=== PATIENT | female | born 1970 | race Caucasian/White ===

== ENCOUNTER 2017-06-27 12:23 | Emergency (ER) | payer BC, OTHER ==
[2017-06-27] MEDS ORDERED: Proparacaine 0.5% Ophth Soln 15 ML Bottle ONE (13:14)
[2017-06-27] MEDS ORDERED: Erythromycin Base 0.5% Ophth Oint 1 GM Tube ONE (13:48)
[2017-06-28 09:14] VITALS: BP 136/83
== END 2017-06-27 13:45 | disposition home or self-care (01) ==
LOC: MW.ED 12:23
DX: S05.02XA Injury of conjunctiva and corneal abrasion without foreign body, left eye, initial encounter (principal); W61 Contact with birds (domestic) (wild)
CPT/HCPCS: 99283; A9270; 99282

== ENCOUNTER 2017-09-11 12:42 | Emergency (ER) | payer BC ==
[2017-09-11 13:04] VITALS: BP 129/79
--- NOTE | 2017-09-11 13:14 | EDM.PDOC ---
ED HPI GENERAL MEDICAL PROBLEM - General Stated Complaint: FALL Time Seen by Provider: 09/11/17 12:42 Source of Information: Reports: Patient History Limitations: Reports: No Limitations - History of Present Illness INITIAL COMMENTS - FREE TEXT/NARRATIVE: History of present illness: []Patient was carrying out a large phillip of meatballs and slipped on a step. She somehow twisted her right ankle. He is ambulatory but has pain and swelling in the lateral part of her right ankle. She denies any other injuries and did not lose consciousness. Review of systems: As per history of present illness and below otherwise all systems reviewed and negative. Past medical history: As per history of present illness and as reviewed below otherwise noncontributory. Surgical history: As per history of present illness and as reviewed below otherwise noncontributory. Social history: No reported history of drug or alcohol abuse. Family history: As per history of present illness and as reviewed below otherwise noncontributory. Physical exam: General: Well developed, well nourished in NAD HEENT: Atraumatic, normocephalic, pupils reactive, negative for conjunctival pallor or scleral icterus, mucous membranes moist, throat clear, neck supple, nontender, trachea midline. Lungs: Clear to auscultation, breath sounds equal bilaterally, chest nontender. Heart: S1S2, regular, negative for clicks, rubs, or JVD. Abdomen: Soft, nondistended, nontender. Negative for masses or hepatosplenomegaly. Negative for costovertebral tenderness. Pelvis: Stable nontender. Genitourinary: Deferred. Rectal: Deferred. Extremities: Superficial skin abrasion over the lateral malleolus with swelling and erythema tenderness to palpation. No crepitance, negative for cords or calf pain. Neurovascular unremarkable. Neuro: Awake, alert, oriented. Cranial nerves II through XII unremarkable. Cerebellum unremarkable. Motor and sensory unremarkable throughout. Exam nonfocal. Diagnostics: []X-ray right ankle negative for fracture Therapeutics: []Patient declined pain meds Impression: []Ankle sprain Plan: []Air splint, ice, elevation, Motrin, follow with primary care as needed Definitive disposition and diagnosis as appropriate pending reevaluation and review of above. right foot Pain Score (Numeric/FACES): 3 - Related Data Allergies Allergy/AdvReac Type Severity Reaction Status Date / Time amoxicillin trihydrate Allergy Blisters Verified 09/11/17 12:59 [From Augmentin] codeine Allergy Blisters Verified 09/11/17 12:59 potassium clavulanate Allergy Blisters Verified 09/11/17 12:59 [From Augmentin] Home Meds: Home Meds Spironolactone [Spironolactone] 50 mg PO DAILY 02/02/15 [History] sitaGLIPtin Phos/Metformin HCl [Janumet Xr 50-1,000 mg Tablet] 1,000 mg PO BID 06/28/17 [History] Past Medical History Endocrine/Metabolic History: Reports: Diabetes, Type II - Past Surgical History Other Female Surgeries/Procedures: Barcolin Cyst Social & Family History - Family History Family Medical History: Noncontributory - Tobacco Use Smoking Status *Q: Never Smoker Second Hand Smoke Exposure: No - Recreational Drug Use Recreational Drug Use: No Review of Systems - Review of Systems Review Of Systems: See Below (See history of present illness) ED EXAM, GENERAL - Physical Exam Exam: See Below (See history of present illness) Course - Vital Signs Last Recorded V/S: Last Vital Signs Temp 98.5 F 09/11/17 13:00 Pulse 97 09/11/17 13:00 Resp 18 09/11/17 13:00 BP 129/79 09/11/17 13:00 Pulse Ox 98 09/11/17 13:00 - Orders/Labs/Meds Orders: Active Orders 24 hr Category Date Time Status Splinting [RC] ASDIRECTED Care 09/11/17 14:05 Ordered Ankle Min 3V Rt [CR] Stat Exams 09/11/17 13:10 Taken Departure - Departure Time of Disposition: 14:06 Disposition: Home, Self-Care 01 Condition: Good Clinical Impression: Right ankle sprain Qualifiers: Encounter type: initial encounter - Discharge Information Referrals: PCP,None [Primary Care Provider] - Additional Instructions: The following information is given to patients seen in the emergency department who are being discharged to home. This information is to outline your options for follow-up care. We provide all patients seen in our emergency department with a follow-up referral. The need for follow-up, as well as the timing and circumstances, are variable depending upon the specifics of your emergency department visit. If you don't have a primary care physician on staff, we will provide you with a referral. We always advise you to contact your personal physician following an emergency department visit to inform them of the circumstance of the visit and for follow-up with them and/or the need for any referrals to a consulting specialist. The emergency department will also refer you to a specialist when appropriate. This referral assures that you have the opportunity for follow-up care with a specialist. All of these measure are taken in an effort to provide you with optimal care, which includes your follow-up. Under all circumstances we always encourage you to contact your private physician who remains a resource for coordinating your care. When calling for follow-up care, please make the office aware that this follow-up is from your recent emergency room visit. If for any reason you are refused follow-up, please contact the [facility] Emergency Department at and asked to speak to the emergency department charge nurse. Ice, elevation, Motrin for pain follow-up with primary care as needed [facility] [address] [place] [id number] - My Orders Last 24 Hours: My Active Orders 09/11/17 13:10 Ankle Min 3V Rt [CR] Stat 09/11/17 14:05 Splinting [RC] ASDIRECTED - Assessment/Plan Last 24 Hours: My Active Orders 09/11/17 13:10 Ankle Min 3V Rt [CR] Stat 09/11/17 14:05 Splinting [RC] ASDIRECTED
--- NOTE | 2017-09-13 11:15 | CR ---
EXAM DATE: 09/11/17 PATIENT'S AGE: 47 Patient: DEISY LADD Facility: [place], [place] Site . Site : [id number] Study: XRay Extremity Right ankle [id number] 1:25:07 PM Ordering Physician: Jaret Taylor Final Report: HISTORY: Fall on ice. TECHNIQUE: Right ankle 3 views. COMPARISON: None. FINDINGS: No fracture or dislocation. Ankle mortise is congruent. Joint spaces are maintained. Spurring of the medial malleolus is likely from remote ligamentous injury. Achilles insertion enthesophyte. Plantar calcaneal enthesophyte. IMPRESSION: No acute findings. Dictated by Wesley Post MD @ Sep 11 2017 1:38PM (Electronic Signature) Report Signed by Proxy. GRANT
== END 2017-09-11 14:13 | disposition home or self-care (01) ==
LOC: MW.ED 12:42
DX: S93.401A Sprain of unspecified ligament of right ankle, initial encounter (principal); X50.1XXA Overexertion from prolonged static or awkward postures, initial encounter; Z88.1 Allergy status to other antibiotic agents; Z88.5 Allergy status to narcotic agent; Z79.899 Other long term (current) drug therapy; Z79.84 Long term (current) use of oral hypoglycemic drugs
CPT/HCPCS: 73610-26-RT; 73610-RT; 99283

== ENCOUNTER 2019-01-20 22:15 | Emergency (ER) | payer BC ==
[2019-01-20] MEDS ORDERED: Sodium Chloride 0.9% 1,000 ML IV ONE (22:17)
[2019-01-20] MEDS ORDERED: LORazepam 2 MG/ML SDV IVPUSH ONE (22:17)
--- NOTE | 2019-01-20 22:18 | EDM.PDOC ---
ED HPI GENERAL MEDICAL PROBLEM - General Chief Complaint: Behavioral/Psych Stated Complaint: PANIC ATTACK Time Seen by Provider: 01/20/19 22:18 Source of Information: Reports: Patient - History of Present Illness INITIAL COMMENTS - FREE TEXT/NARRATIVE: HISTORY AND PHYSICAL: History of present illness: [Patient presents with anxiety panic seeming to stem from several different reasons she does have a history of anxiety panic she was recently stopped Paxil and switched to fluoxetine a few months ago and then stop medication altogether She is working on her master's degree with thesis papers due as well as a son that had some legal problems over the weekend since she has been having anxiety panic problems for the last week Follow with her primary care restarted fluoxetine at 40 mg daily however she has only been on the medication for 2 days She has no fever nausea vomiting chills sweats no chest pain shortness breath headache dizziness palpitation no bowel or urine symptoms ] Review of systems: As per history of present illness and below otherwise all systems reviewed and negative. Past medical history: As per history of present illness and as reviewed below otherwise noncontributory. Surgical history: As per history of present illness and as reviewed below otherwise noncontributory. Social history: No reported history of drug or alcohol abuse. Family history: As per history of present illness and as reviewed below otherwise noncontributory. Physical exam: HEENT: Atraumatic, normocephalic, pupils reactive, negative for conjunctival pallor or scleral icterus, mucous membranes moist, throat clear, neck supple, nontender, trachea midline. Lungs: Clear to auscultation, breath sounds equal bilaterally, chest nontender. Heart: S1S2, regular, negative for clicks, rubs, or JVD. Abdomen: Soft, nondistended, nontender. Negative for masses or hepatosplenomegaly. Negative for costovertebral tenderness. Pelvis: Stable nontender. Genitourinary: Deferred. Rectal: Deferred. Extremities: Atraumatic, negative for cords or calf pain. Neurovascular unremarkable. Neuro: Awake, alert, oriented. Cranial nerves II through XII unremarkable. Cerebellum unremarkable. Motor and sensory unremarkable throughout. Exam nonfocal. Diagnostics: [CBC CMP UA troponin EKG ] Therapeutics: [Normal saline Ativan 1 mg IV ] Ativan 0.5 mg by mouth twice a day #10 no refill Impression: [ anxiety/panic ]-improved Medication noncompliance Definitive disposition and diagnosis as appropriate pending reevaluation and review of above. eyes Pain Score (Numeric/FACES): 3 - Related Data Allergies Allergy/AdvReac Type Severity Reaction Status Date / Time amoxicillin trihydrate Allergy Blisters Verified 01/20/19 22:21 [From Augmentin] codeine Allergy Blisters Verified 01/20/19 22:21 potassium clavulanate Allergy Blisters Verified 01/20/19 22:21 [From Augmentin] Home Meds: Home Meds Spironolactone 50 mg PO DAILY 02/02/15 [History] sitaGLIPtin Phos/Metformin HCl [Janumet Xr 50-1,000 mg Tablet] 1,000 mg PO BID 06/28/17 [History] Past Medical History Endocrine/Metabolic History: Reports: Diabetes, Type II - Past Surgical History Other Female Surgeries/Procedures: Barcolin Cyst Social & Family History - Family History Family Medical History: Noncontributory ED ROS GENERAL - Review of Systems Review Of Systems: See Below ED EXAM, GENERAL - Physical Exam Exam: See Below Course - Vital Signs Last Recorded V/S: Last Vital Signs Temp 97 F 01/20/19 22:21 Pulse 122 H 01/20/19 22:21 Resp 18 01/20/19 22:21 BP 147/96 H 01/20/19 22:21 Pulse Ox 98 01/20/19 22:21 - Orders/Labs/Meds Orders: Active Orders 24 hr Category Date Time Status EKG Documentation Completion [RC] STAT Care 01/20/19 22:17 Active Labs: Laboratory Tests 01/20/19 01/20/19 01/20/19 Range/Units 22:40 22:40 23:50 WBC 10.36 (4.0-11.0) K/uL RBC 5.43 (4.30-5.90) M/uL Hgb 14.7 (12.0-16.0) g/dL Hct 44.4 (36.0-46.0) % MCV 81.8 (80.0-98.0) fL MCH 27.1 (27.0-32.0) pg MCHC 33.1 (31.0-37.0) g/dL RDW Std Deviation 38.5 (28.0-62.0) fl RDW Coeff of Evelyn 13 (11.0-15.0) % Plt Count 315 (150-400) K/uL MPV 9.60 (7.40-12.00) fL Neut % (Auto) 67.7 (48.0-80.0) % Lymph % (Auto) 18.6 (16.0-40.0) % [place] % (Auto) 6.3 (0.0-15.0) % Eos % (Auto) 7.0 (0.0-7.0) % Baso % (Auto) 0.4 (0.0-1.5) % Neut # (Auto) 7.0 H (1.4-5.7) K/uL Lymph # (Auto) 1.9 (0.6-2.4) K/uL [place] # (Auto) 0.7 (0.0-0.8) K/uL Eos # (Auto) 0.7 (0.0-0.7) K/uL Baso # (Auto) 0.0 (0.0-0.1) K/uL Nucleated RBC % 0.0 /100WBC Nucleated RBCs # 0 K/uL Sodium 138 (136-145) mmol/L Potassium 4.0 (3.5-5.1) mmol/L Chloride 103 (98-107) mmol/L Carbon Dioxide 23.1 (21.0-32.0) mmol/L BUN 16 (7.0-18.0) mg/dL Creatinine 0.7 (0.6-1.0) mg/dL Est Cr Clr Drug Dosing 123.87 mL/min Estimated GFR (MDRD) > 60.0 ml/min Glucose 176 H (74-106) mg/dL Calcium 9.1 (8.5-10.1) mg/dL Total Bilirubin 0.3 (0.2-1.0) mg/dL AST 17 (15-37) IU/L ALT 32 (14-63) IU/L Alkaline Phosphatase 62 (46-116) U/L Total Protein 7.7 (6.4-8.2) g/dL Albumin 3.9 (3.4-5.0) g/dL Globulin 3.8 (2.6-4.0) g/dL Albumin/Globulin Ratio 1.0 (0.9-1.6) Urine Color YELLOW Urine Appearance CLEAR Urine pH 5.5 (5.0-8.0) Ur Specific [place] 1.025 (1.001-1.035) Urine Protein NEGATIVE (NEGATIVE) mg/dL Urine Glucose (UA) NEGATIVE (NEGATIVE) mg/dL Urine Ketones TRACE H (NEGATIVE) mg/dL Urine Occult Blood NEGATIVE (NEGATIVE) Urine Nitrite NEGATIVE (NEGATIVE) Urine Bilirubin NEGATIVE (NEGATIVE) Urine Urobilinogen 0.2 (<2.0) EU/dL Ur Leukocyte Esterase NEGATIVE (NEGATIVE) Meds: Medications Discontinued Medications Generic Name Dose Route Start Last Admin Trade Name Sunita PRN Reason Stop Dose Admin Sodium Chloride 1,000 mls @ 999 mls/hr 01/20/19 22:17 01/20/19 22:44 Normal Saline IV 01/20/19 23:17 999 mls/hr STAT ONE Administration Lorazepam 1 mg 01/20/19 22:17 01/20/19 22:44 Ativan IVPUSH 01/20/19 22:18 1 mg ONETIME ONE Administration Departure - Departure Time of Disposition: 00:20 Disposition: Home, Self-Care 01 Condition: Good Clinical Impression: Anxiety - Discharge Information Referrals: PCP,None [Primary Care Provider] - Forms: ED Department Discharge Additional Instructions: The following information is given to patients seen in the emergency department who are being discharged to home. This information is to outline your options for follow-up care. We provide all patients seen in our emergency department with a follow-up referral. The need for follow-up, as well as the timing and circumstances, are variable depending upon the specifics of your emergency department visit. If you don't have a primary care physician on staff, we will provide you with a referral. We always advise you to contact your personal physician following an emergency department visit to inform them of the circumstance of the visit and for follow-up with them and/or the need for any referrals to a consulting specialist. The emergency department will also refer you to a specialist when appropriate. This referral assures that you have the opportunity for follow-up care with a specialist. All of these measure are taken in an effort to provide you with optimal care, which includes your follow-up. Under all circumstances we always encourage you to contact your private physician who remains a resource for coordinating your care. When calling for follow-up care, please make the office aware that this follow-up is from your recent emergency room visit. If for any reason you are refused follow-up, please contact the [facility] emergency department at and asked to speak to the emergency department charge nurse. - My Orders Last 24 Hours: My Active Orders 01/20/19 22:17 EKG Documentation Completion [RC] STAT - Assessment/Plan Last 24 Hours: My Active Orders 01/20/19 22:17 EKG Documentation Completion [RC] STAT
[2019-01-20 23:12] LABS: CHLORIDE,CL 103 mmol/L (98-107); SODIUM,NA 138 mmol/L (136-145)
[2019-01-21 00:35] VITALS: BP 106/75
== END 2019-01-21 00:35 | disposition home or self-care (01) ==
LOC: MW.ED 22:15
DX: F41.9 Anxiety disorder, unspecified (principal); Z91.19 Patient's noncompliance with other medical treatment and regimen; Z88.1 Allergy status to other antibiotic agents; Z88.5 Allergy status to narcotic agent; Z88.8 Allergy status to other drugs, medicaments and biological substances; Z79.899 Other long term (current) drug therapy; Z79.84 Long term (current) use of oral hypoglycemic drugs; E11.9 Type 2 diabetes mellitus without complications
CPT/HCPCS: 80053; 81003; 85025; 93005; 96361; 96374; 99283; J2060; J7040

== ENCOUNTER 2019-05-12 18:28 | Emergency (ER) | payer SELFPAY ==
[2019-05-12] MEDS ORDERED: Ketorolac 30 MG/ML SDV IVPUSH ONE (18:44)
[2019-05-12] MEDS ORDERED: Ondansetron 4 MG/2 ML SDV IVPUSH ONE (18:44)
[2019-05-12] MEDS ORDERED: Metoclopramide 10 MG/2 ML SDV IV ONE (18:44)
[2019-05-12] MEDS ORDERED: diphenhydrAMINE 50 MG/ML SDV IVPUSH ONE (18:44)
[2019-05-12] MEDS ORDERED: Sodium Chloride 0.9% 1,000 ML IV ONE (18:44)
--- NOTE | 2019-05-12 18:53 | EDM.PDOC ---
ED HPI GENERAL MEDICAL PROBLEM - General Chief Complaint: Headache Stated Complaint: MIGRAINE Time Seen by Provider: 05/12/19 18:36 Source of Information: Reports: Patient History Limitations: Reports: No Limitations - History of Present Illness INITIAL COMMENTS - FREE TEXT/NARRATIVE: HISTORY AND PHYSICAL: History of present illness: Patient is a 48-year-old female who presents to the ED today with concern of a migraine headache 1 hour. Patient states she has a history of migraines and has sumatriptan available to her. Patient states she was unable to find her sumatriptan down so came to the emergency room. Patient states her migraine today is typical of her usual migraine headaches and is not changed per her baseline migraines. Patient states she has not taken anything for her symptoms. Patient denies any associated symptoms or any other symptoms or concerns. Patient denies fever, chills, chest pain, shortness of breath, or cough. Denies neck stiff ness, change in vision, syncope, or near syncope. Denies nausea, vomiting, abdominal pain, diarrhea, constipation, or dysuria. Has not noted any blood in urine or stool. Patient has been eating and drinking appropriately. Review of systems: As per history of present illness and below otherwise all systems reviewed and negative. Past medical history: As per history of present illness and as reviewed below otherwise noncontributory. Surgical history: As per history of present illness and as reviewed below otherwise noncontributory. Social history: See social history for further information Family history: As per history of present illness and as reviewed below otherwise noncontributory. Physical exam: General: Patient is alert, oriented, and in no acute distress. Patient sitting comfortably on exam table. HEENT: Atraumatic, normocephalic, pupils equal and reactive bilaterally, negative for conjunctival pallor or scleral icterus, mucous membranes moist, TMs normal bilaterally, throat clear, neck supple, nontender, trachea midline. No drooling or trismus noted. No meningeal signs. No hot potato voice noted. Lungs: Clear to auscultation, breath sounds equal bilaterally, chest nontender. Heart: S1S2, regular rate and rhythm without overt murmur Abdomen: Soft, nondistended, nontender. Negative for masses or hepatosplenomegaly. Negative for costovertebral tenderness. Pelvis: Stable nontender. Genitourinary: Deferred. Rectal: Deferred. Skin: Intact, warm, dry. No lesions or rashes noted. Extremities: Atraumatic, negative for cords or calf pain. Neurovascular unremarkable. Neuro: Awake, alert, oriented. Cranial nerves II through XII unremarkable. Cerebellum unremarkable. Motor and sensory unremarkable throughout. Exam nonfocal. Notes: Patient expresses complete resolution of her headache today with therapeutics given. Discussed the importance for follow-up with a primary care provider. Voices understanding and is agreeable to plan of care. Denies any further questions or concerns at this time. Diagnostics: None Therapeutics: Saline, Toradol, Zofran, Benadryl, Reglan Prescription: None Impression: Migraine Headache Plan: 1. Encourage small but frequent sips of fluid to prevent dehydration. You can alternate ibuprofen and Tylenol as directed for pain and discomfort. 2. Follow-up with your primary care provider or neurologist as discussed. Return to the ED as needed and as discussed. Definitive disposition and diagnosis as appropriate pending reevaluation and review of above. Right Head Pain Score (Numeric/FACES): 8 - Related Data Allergies Allergy/AdvReac Type Severity Reaction Status Date / Time amoxicillin trihydrate Allergy Blisters Verified 05/12/19 18:32 [From Augmentin] codeine Allergy Blisters Verified 05/12/19 18:32 potassium clavulanate Allergy Blisters Verified 05/12/19 18:32 [From Augmentin] Home Meds: Home Meds Spironolactone 50 mg PO DAILY 02/02/15 [History] sitaGLIPtin Phos/Metformin HCl [Janumet Xr 50-1,000 mg Tablet] 1,000 mg PO BID 06/28/17 [History] FLUoxetine [PROzac] 40 mg PO ASDIRECTED 05/12/19 [History] Insulin Aspart (Niacinamide) [Fiasp Penfill 100 Unit/ml Cart] 100 unit SQ ASDIRECTED 05/12/19 [History] Past Medical History HEENT History: Reports: None Cardiovascular History: Reports: None Respiratory History: Reports: None Gastrointestinal History: Reports: None Genitourinary History: Reports: None [employer]GEMENT History: Reports: Musculoskeletal History: Reports: None Neurological History: Reports: None Psychiatric History: Reports: Anxiety, Depression Endocrine/Metabolic History: Reports: Diabetes, Type II Hematologic History: Reports: None Immunologic History: Reports: None Oncologic (Cancer) History: Reports: None Dermatologic History: Reports: None - Infectious Disease History Infectious Disease History: Reports: None - Past Surgical History Other Female Surgeries/Procedures: Barcolin Cyst Social & Family History - Family History Family Medical History: Noncontributory - Tobacco Use Smoking Status *Q: Never Smoker Second Hand Smoke Exposure: No - Caffeine Use Caffeine Use: Reports: Coffee - Recreational Drug Use Recreational Drug Use: No ED ROS GENERAL - Review of Systems Review Of Systems: ROS reveals no pertinent complaints other than HPI. ED EXAM, GENERAL - Physical Exam Exam: See Below (See dictation) Course - Vital Signs Last Recorded V/S: Last Vital Signs Temp 95.5 F 05/12/19 18:34 Pulse 85 05/12/19 18:34 Resp 24 H 05/12/19 18:34 BP 143/59 H 05/12/19 18:34 Pulse Ox 100 05/12/19 18:34 - Orders/Labs/Meds Orders: Active Orders 24 hr Category Date Time Status Sodium Chloride 0.9% [Normal Saline] 1,000 ml Med 05/12/19 18:44 Active IV STAT Medication Orders Sodium Chloride (Normal Saline) 1,000 mls @ 999 mls/hr IV STAT ONE Stop: 05/12/19 19:44 Last Admin: 05/12/19 18:58 Dose: 999 mls/hr Meds: Medications Generic Name Dose Route Start Last Admin Trade Name Freq PRN Reason Stop Dose Admin Sodium Chloride 1,000 mls @ 999 mls/hr 05/12/19 18:44 05/12/19 18:58 Normal Saline IV 05/12/19 19:44 999 mls/hr STAT ONE Administration Discontinued Medications Generic Name Dose Route Start Last Admin Trade Name Freq PRN Reason Stop Dose Admin Diphenhydramine HCl 50 mg 05/12/19 18:44 05/12/19 18:57 Benadryl IVPUSH 05/12/19 18:45 50 mg ONETIME ONE Administration Ketorolac Tromethamine 30 mg 05/12/19 18:44 05/12/19 18:57 Toradol IVPUSH 05/12/19 18:45 30 mg ONETIME ONE Administration Metoclopramide HCl 10 mg 05/12/19 18:44 05/12/19 18:57 Reglan IV 05/12/19 18:45 10 mg ONETIME ONE Administration Ondansetron HCl 4 mg 05/12/19 18:44 05/12/19 18:57 Zofran IVPUSH 05/12/19 18:45 4 mg ONETIME ONE Administration Departure - Departure Time of Disposition: 19:35 Disposition: Home, Self-Care 01 Clinical Impression: Migraine Qualifiers: Migraine type: without aura Status migrainosus presence: without status migrainosus Intractability: not intractable Qualified Code(s): G43.009 - Migraine without aura, not intractable, without status migrainosus - Discharge Information Referrals: Yony Dunbar MD [Primary Care Provider] - Forms: ED Department Discharge Additional Instructions: The following information is given to patients seen in the emergency department who are being discharged to home. This information is to outline your options for follow-up care. We provide all patients seen in our emergency department with a follow-up referral. The need for follow-up, as well as the timing and circumstances, are variable depending upon the specifics of your emergency department visit. If you don't have a primary care physician on staff, we will provide you with a referral. We always advise you to contact your personal physician following an emergency department visit to inform them of the circumstance of the visit and for follow-up with them and/or the need for any referrals to a consulting specialist. The emergency department will also refer you to a specialist when appropriate. This referral assures that you have the opportunity for follow-up care with a specialist. All of these measure are taken in an effort to provide you with optimal care, which includes your follow-up. Under all circumstances we always encourage you to contact your private physician who remains a resource for coordinating your care. When calling for follow-up care, please make the office aware that this follow-up is from your recent emergency room visit. If for any reason you are refused follow-up, please contact the [facility] Emergency Department at and asked to speak to the emergency department charge nurse. [facility] [address] [place] [address] [id number] [address] [address] 1. Encourage small but frequent sips of fluid to prevent dehydration. You can alternate ibuprofen and Tylenol as directed for pain and discomfort. 2. Follow-up with your primary care provider or neurologist as discussed. Return to the ED as needed and as discussed. - My Orders Last 24 Hours: My Active Orders 05/12/19 18:44 Sodium Chloride 0.9% [Normal Saline] 1,000 ml IV STAT - Assessment/Plan Last 24 Hours: My Active Orders 05/12/19 18:44 Sodium Chloride 0.9% [Normal Saline] 1,000 ml IV STAT
[2019-05-12 19:53] VITALS: BP 96/56; PULSE 76
== END 2019-05-12 19:50 | disposition home or self-care (01) ==
LOC: MW.ED 18:28
DX: G43.009 Migraine without aura, not intractable, without status migrainosus (principal); E11.9 Type 2 diabetes mellitus without complications; F32.9 Major depressive disorder, single episode, unspecified; F41.9 Anxiety disorder, unspecified; Z79.4 Long term (current) use of insulin; Z79.899 Other long term (current) drug therapy; Z88.0 Allergy status to penicillin; Z88.1 Allergy status to other antibiotic agents; Z88.5 Allergy status to narcotic agent
CPT/HCPCS: 96361; 96374; 96375; 99283; J1200; J1885; J2405; J2765; J7040

== ENCOUNTER 2020-06-17 10:12 | Emergency (ER) | payer BC ==
[2020-06-17] MEDS ORDERED: Orphenadrine 60 MG/2 ML Inj IM ONE (10:45)
[2020-06-17] MEDS ORDERED: methylPREDNISolone Sodium Succinate 125 MG/2 ML SDV IM ONE (10:45)
[2020-06-17] MEDS ORDERED: Ketorolac 60 MG/2 ML SDV IM ONE (10:50)
--- NOTE | 2020-06-17 11:22 | EDM.PDOC ---
ED HPI GENERAL MEDICAL PROBLEM - General Chief Complaint: Back Pain or Injury Stated Complaint: LOWER BACK AND LEG PAIN Time Seen by Provider: 06/17/20 10:24 Source of Information: Reports: Patient History Limitations: Reports: No Limitations - History of Present Illness INITIAL COMMENTS - FREE TEXT/NARRATIVE: HISTORY AND PHYSICAL: History of present illness: Patient is a 49-year-old female who presents to the ED today with concern of left-sided buttock/low back pain that has been ongoing since Wednesday. Patient states that she was lifting the vacuum on Wednesday and felt a pulling sensation in her left buttock. Patient states that since then she has had a "tightening "sensation of her left buttock that radiates down the back of her left leg and into her left calf. Patient states that she is also had a decreased sensation of this area but is still able to feel the entire extremity. Patient denies any loss/retention of bowel and bladder function or saddle anesthesia. Patient states she is having worsening pain with sitting and better when standing. Denies any weakness. Patient states she took a dose of Tylenol before coming to the emergency room and yesterday took a dose of ibuprofen. Patient states she has a history of psoriasis and diabetes on insulin but denies any other health history. Patient denies fever, chills, chest pain, shortness of breath, or cough. Denies headache, neck stiff ness, change in vision, syncope, or near syncope. Denies nausea, vomiting, abdominal pain, diarrhea, constipation, or dysuria. Has not noted any blood in urine or stool. Patient has been eating and drinking appropriately. Review of systems: As per history of present illness and below otherwise all systems reviewed and negative. Past medical history: As per history of present illness and as reviewed below otherwise noncontributory. Surgical history: As per history of present illness and as reviewed below otherwise noncontributory. Social history: See social history for further information Family history: As per history of present illness and as reviewed below otherwise noncontributory. Physical exam: General: Patient is alert, oriented, and in no acute distress. Patient standing comfortably on exam table. Patient was able to ambulate into the ED today without difficult. Patient is tachycardic 115's on exam but otherwise vitally stable. HEENT: Atraumatic, normocephalic, pupils equal and reactive bilaterally, negative for conjunctival pallor or scleral icterus, mucous membranes moist, TMs normal bilaterally, throat clear, neck supple, nontender, trachea midline. No drooling or trismus noted. No meningeal signs. No hot potato voice noted. Lungs: Clear to auscultation, breath sounds equal bilaterally, chest nontender. Heart: S1S2, regular rate and rhythm without overt murmur Abdomen: Soft, nondistended, nontender. Negative for masses or hepatosplenomegaly. Negative for costovertebral tenderness. Pelvis: Stable nontender. Genitourinary: Deferred. Rectal: Deferred. Skin: Intact, warm, dry. No lesions or rashes noted. Extremities/musculoskeletal: No obvious deformity of the complete spine. No step-offs, crepitus, or point tenderness to palpation of the complete spine. Patient does have recreation of symptoms with palpation of the right sided para spinous muscle and down into the right gluteus dania area. Patient does have tenderness with palpation of the posterior thigh but no obvious edema, erythema, or rashes noted. Patient does have full ROM of bilateral lower extremities without weakness/deficit and intact sensation to light and deep touch. Dorsalis pedis and posterior tibial pulses are grossly intact with capillary refill less than 2 seconds. Otherwise, atraumatic, negative for cords or calf pain. Neuro vascular unremarkable. Neuro: Awake, alert, oriented. Cranial nerves II through XII unremarkable. Cerebellum unremarkable. Motor and sensory unremarkable throughout. Exam nonfocal. Notes: Patient is initially tachycardic 115s on exam, she states that she does feel this is due to her pain and discomfort of her low back and would like to wait pending pain management to reevaluate for need of further diagnostics. After toradol and norflex, patient remains tachycardic and agreeable to further diagnostics for tachycardia. See Dr. Reid's dictation for EKG interpretation. Upon reevaluation of patient while pending diagnostic completion, she states that she feels much more comfortable. Vitals were reassessed and tachycardia has resolved. Urine does show positive nitrite with 1+ bacteria but 0 white blood cells and 0 red blood cells. Patient states that she is asymptomatic at this time and would like to wait for cultures of urine to assess for possible UTI to avoid unnecessary antibiotics. Discussed importance for follow-up with a primary care provider. Strict return precautions thoroughly discussed with patient. Voices understanding and is agreeable to plan of care. Denies any further questions or concerns at this time. Diagnostics: UA, Uhcg, urine culture, Pelvic XR, lumbar XR, LE venous doppler, CBC, CMP, CXR, Trop, Ddimer Therapeutics: Solumedrol, Toradol, Norflex, [place] Prescription: Diclofenac, Flexeril Impression: Low back pain, improved Hyperglycemia Sinus tachycardia, resolved Plan: 1. The medication you received today does cause drowsiness, so do not drive for the remaining day. 2. When resting please lay on a flat firm surface. Limit your mobility to prevent muscle stiffness. Get up to ambulate/move around/gentle stretching multiple times throughout the day. May alternate heat and ice to painful areas. 3. Tylenol as needed for back pain. Otherwise, take the prescribed Flexeril and diclofenac as directed. Diclofenac as an anti-inflammatory medication so do not take any additional NSAIDs with this medication, such as naproxen, ibuprofen, or Aleve. Flexeril, this medication may cause drowsiness, so do not take it while driving or needing to be functioning outside of the home. 4. Follow-up with your primary care provider as discussed. Return to the ED as needed and as discussed. Definitive disposition and diagnosis as appropriate pending reevaluation and review of above. right lower back Pain Score (Numeric/FACES): 7 - Related Data Allergies Allergy/AdvReac Type Severity Reaction Status Date / Time amoxicillin trihydrate Allergy Blisters Verified 06/17/20 10:25 [From Augmentin] codeine Allergy Blisters Verified 06/17/20 10:25 potassium clavulanate Allergy Blisters Verified 06/17/20 10:25 [From Augmentin] Home Meds: Home Meds Spironolactone 50 mg PO DAILY 02/02/15 [History] FLUoxetine [PROzac] 40 mg PO ASDIRECTED 05/12/19 [History] Insulin Aspart (Niacinamide) [Fiasp Penfill 100 Unit/ml Cart] 100 unit SQ ASDIRECTED 05/12/19 [History] Cyclobenzaprine [Flexeril] 10 mg PO TID PRN #9 tab 06/17/20 [Rx] Diclofenac Sodium [Voltaren] 75 mg PO BIDMEALS PRN #15 tab.cr 06/17/20 [Rx] Insulin Degludec [Tresiba] 35 unit INJECT DAILY 06/17/20 [History] methylPREDNISolone [Medrol] 4 mg PO ASDIRECTED #1 dosepk 06/17/20 [Rx] Past Medical History HEENT History: Reports: None Cardiovascular History: Reports: None Respiratory History: Reports: None Gastrointestinal History: Reports: None Genitourinary History: Reports: None SANDWICH HAND History: Reports: Musculoskeletal History: Reports: None Neurological History: Reports: None Psychiatric History: Reports: Anxiety, Depression Endocrine/Metabolic History: Reports: Diabetes, Type II Hematologic History: Reports: None Immunologic History: Reports: None Oncologic (Cancer) History: Reports: None Dermatologic History: Reports: None - Infectious Disease History Infectious Disease History: Reports: Chicken Pox - Past Surgical History Female Surgical History: Reports: Section Other Female Surgeries/Procedures: [place] Cyst Social & Family History - Family History Family Medical History: No Pertinent Family History - Tobacco Use Tobacco Use Status *Q: Never Tobacco User - Caffeine Use Caffeine Use: Reports: Energy Drinks - Recreational Drug Use Recreational Drug Use: No ED ROS GENERAL - Review of Systems Review Of Systems: Comprehensive ROS is negative, except as noted in HPI. ED EXAM, GENERAL - Physical Exam Exam: See Below (see dictation) Course - Vital Signs Last Recorded V/S: Last Vital Signs Temp 97.4 F 06/17/20 14:05 Pulse 88 06/17/20 14:05 Resp 16 06/17/20 14:05 BP 130/88 06/17/20 14:05 Pulse Ox 96 06/17/20 14:05 - Orders/Labs/Meds Orders: Active Orders 24 hr Category Date Time Status CULTURE URINE [RM] Stat Lab 06/17/20 11:00 Received Labs: Laboratory Tests 06/17/20 06/17/20 06/17/20 Range/Units 11:00 11:00 12:40 WBC (4.0-11.0) K/uL RBC (4.30-5.90) M/uL Hgb (12.0-16.0) g/dL Hct (36.0-46.0) % MCV (80.0-98.0) fL MCH (27.0-32.0) pg MCHC (31.0-37.0) g/dL RDW Std Deviation (28.0-62.0) fl RDW Coeff of Evelyn (11.0-15.0) % Plt Count (150-400) K/uL MPV (7.40-12.00) fL Neut % (Auto) (48.0-80.0) % Lymph % (Auto) (16.0-40.0) % [place] % (Auto) (0.0-15.0) % Eos % (Auto) (0.0-7.0) % Baso % (Auto) (0.0-1.5) % Neut # (Auto) (1.4-5.7) K/uL Lymph # (Auto) (0.6-2.4) K/uL [place] # (Auto) (0.0-0.8) K/uL Eos # (Auto) (0.0-0.7) K/uL Baso # (Auto) (0.0-0.1) K/uL Nucleated RBC % /100WBC Nucleated RBCs # K/uL D-Dimer, Quantitative (0.0-0.50) mg/L FEU Sodium (136-145) mmol/L Potassium (3.5-5.1) mmol/L Chloride (98-107) mmol/L Carbon Dioxide (21.0-32.0) mmol/L BUN (7.0-18.0) mg/dL Creatinine (0.6-1.0) mg/dL Est Cr Clr Drug Dosing mL/min Estimated GFR (MDRD) ml/min Glucose (74-106) mg/dL POC Glucose 329 H (60-110) mg/dL Calcium (8.5-10.1) mg/dL Total Bilirubin (0.2-1.0) mg/dL AST (15-37) IU/L ALT (14-63) IU/L Alkaline Phosphatase (46-116) U/L Troponin I (0.000-0.056) ng/mL Total Protein (6.4-8.2) g/dL Albumin (3.4-5.0) g/dL Globulin (2.6-4.0) g/dL Albumin/Globulin Ratio (0.9-1.6) Urine Color YELLOW Urine Appearance CLEAR Urine pH 6.0 (5.0-8.0) Ur Specific Dat[place] 1.015 (1.001-1.035) Urine Protein NEGATIVE (NEGATIVE) mg/dL Urine Glucose (UA) >=1000 (NEGATIVE) mg/dL Urine Ketones NEGATIVE (NEGATIVE) mg/dL Urine Occult Blood NEGATIVE (NEGATIVE) Urine Nitrite POSITIVE H (NEGATIVE) Urine Bilirubin NEGATIVE (NEGATIVE) Urine Urobilinogen 0.2 (<2.0) EU/dL Ur Leukocyte Esterase NEGATIVE (NEGATIVE) Urine RBC 0-2 (0-2/HPF) Urine WBC 0-2 (0-5/HPF) Ur Epithelial Cells FEW (NONE-FEW) Urine Bacteria 1+ H (NEGATIVE) Urine HCG, Qual NEGATIVE (NEGATIVE) 06/17/20 06/17/20 06/17/20 Range/Units 13:05 13:05 13:05 WBC 8.05 (4.0-11.0) K/uL RBC 5.49 (4.30-5.90) M/uL Hgb 15.5 (12.0-16.0) g/dL Hct 46.2 H (36.0-46.0) % MCV 84.2 (80.0-98.0) fL MCH 28.2 (27.0-32.0) pg MCHC 33.5 (31.0-37.0) g/dL RDW Std Deviation 38.1 (28.0-62.0) fl RDW Coeff of Evelyn 13 (11.0-15.0) % Plt Count 344 (150-400) K/uL MPV 9.80 (7.40-12.00) fL Neut % (Auto) 72.5 (48.0-80.0) % Lymph % (Auto) 17.0 (16.0-40.0) % [place] % (Auto) 6.1 (0.0-15.0) % Eos % (Auto) 3.9 (0.0-7.0) % Baso % (Auto) 0.5 (0.0-1.5) % Neut # (Auto) 5.8 H (1.4-5.7) K/uL Lymph # (Auto) 1.4 (0.6-2.4) K/uL [place] # (Auto) 0.5 (0.0-0.8) K/uL Eos # (Auto) 0.3 (0.0-0.7) K/uL Baso # (Auto) 0.0 (0.0-0.1) K/uL Nucleated RBC % 0.0 /100WBC Nucleated RBCs # 0 K/uL D-Dimer, Quantitative 0.34 (0.0-0.50) mg/L FEU Sodium 134 L (136-145) mmol/L Potassium 4.4 (3.5-5.1) mmol/L Chloride 98 (98-107) mmol/L Carbon Dioxide 23.6 (21.0-32.0) mmol/L BUN 11 (7.0-18.0) mg/dL Creatinine 0.9 (0.6-1.0) mg/dL Est Cr Clr Drug Dosing 62.55 mL/min Estimated GFR (MDRD) > 60.0 ml/min Glucose 367 H (74-106) mg/dL POC Glucose (60-110) mg/dL Calcium 9.2 (8.5-10.1) mg/dL Total Bilirubin 0.4 (0.2-1.0) mg/dL AST 11 L (15-37) IU/L ALT 24 (14-63) IU/L Alkaline Phosphatase 98 (46-116) U/L Troponin I < 0.050 (0.000-0.056) ng/mL Total Protein 7.7 (6.4-8.2) g/dL Albumin 4.2 (3.4-5.0) g/dL Globulin 3.5 (2.6-4.0) g/dL Albumin/Globulin Ratio 1.2 (0.9-1.6) Urine Color Urine Appearance Urine pH (5.0-8.0) Ur Specific Dat[place] (1.001-1.035) Urine Protein (NEGATIVE) mg/dL Urine Glucose (UA) (NEGATIVE) mg/dL Urine Ketones (NEGATIVE) mg/dL Urine Occult Blood (NEGATIVE) Urine Nitrite (NEGATIVE) Urine Bilirubin (NEGATIVE) Urine Urobilinogen (<2.0) EU/dL Ur Leukocyte Esterase (NEGATIVE) Urine RBC (0-2/HPF) Urine WBC (0-5/HPF) Ur Epithelial Cells (NONE-FEW) Urine Bacteria (NEGATIVE) Urine HCG, Qual (NEGATIVE) Meds: Medications Discontinued Medications Generic Name Dose Route Start Last Admin Trade Name Freq PRN Reason Stop Dose Admin Hydrocodone Bitart/Acetaminophen 1 tab 06/17/20 12:42 12/14/20 12:56 [place] 325-5 Mg PO 06/17/20 12:43 1 tab ONETIME ONE Administration Sodium Chloride 1,000 mls @ 999 mls/hr 06/17/20 12:41 06/17/20 12:57 Normal Saline IV 06/17/20 13:41 999 mls/hr BOLUS ONE Administration Ketorolac Tromethamine 60 mg 06/17/20 10:50 06/17/20 11:47 Toradol IM 06/17/20 10:51 60 mg ONETIME ONE Administration Methylprednisolone Sodium Succinate 125 mg 06/17/20 10:45 06/17/20 11:48 Solu-Medrol IM 06/17/20 10:46 125 mg ONETIME ONE Administration Orphenadrine Citrate 60 mg 06/17/20 10:45 06/17/20 11:46 Norflex IM 06/17/20 10:46 60 mg ONETIME ONE Administration Departure - Departure Time of Disposition: 12:29 Disposition: Home, Self-Care 01 Clinical Impression: Sinus tachycardia, Hyperglycemia Low back pain Qualifiers: Chronicity: acute Back pain laterality: right Sciatica presence: with sciatica Sciatica laterality: sciatica of right side Qualified Code(s): M54.41 - Lumbago with sciatica, right side - Discharge Information Prescriptions: Cyclobenzaprine [Flexeril] 10 mg PO TID PRN #9 tab PRN Reason: Spasms methylPREDNISolone [Medrol] 4 mg PO ASDIRECTED #1 dosepk Diclofenac Sodium [Voltaren] 75 mg PO BIDMEALS PRN #15 tab.cr PRN Reason: Pain Instructions: Acute Back Pain, Adult, Back Injury Prevention, [id number], Back Exercises, [id number] Referrals: Kt Okeefe MD [Primary Care Provider] - Forms: ED Department Discharge Additional Instructions: The following information is given to patients seen in the emergency department who are being discharged to home. This information is to outline your options for follow-up care. We provide all patients seen in our emergency department with a follow-up referral. The need for follow-up, as well as the timing and circumstances, are variable depending upon the specifics of your emergency department visit. If you don't have a primary care physician on staff, we will provide you with a referral. We always advise you to contact your personal physician following an emergency department visit to inform them of the circumstance of the visit and for follow-up with them and/or the need for any referrals to a consulting specialist. The emergency department will also refer you to a specialist when appropriate. This referral assures that you have the opportunity for follow-up care with a specialist. All of these measure are taken in an effort to provide you with optimal care, which includes your follow-up. Under all circumstances we always encourage you to contact your private physician who remains a resource for coordinating your care. When calling for follow-up care, please make the office aware that this follow-up is from your recent emergency room visit. If for any reason you are refused follow-up, please contact the [facility] Emergency Department at and asked to speak to the emergency department charge nurse. [facility] [address] [place] [id number] [facility] [address] [place] [id number] 1. The medication you received today does cause drowsiness, so do not drive for the remaining day. 2. When resting please lay on a flat firm surface. Limit your mobility to prevent muscle stiffness. Get up to ambulate/move around/gentle stretching multiple times throughout the day. May alternate heat and ice to painful areas. 3. Tylenol as needed for back pain. Otherwise, take the prescribed Flexeril and diclofenac as directed. Diclofenac as an anti-inflammatory medication so do not take any additional NSAIDs with this medication, such as naproxen, ibuprofen, or Aleve. Flexeril, this medication may cause drowsiness, so do not take it while driving or needing to be functioning outside of the home. 4. Follow-up with your primary care provider as discussed. Return to the ED as needed and as discussed. Sepsis Event Note (ED) - Evaluation Sepsis Screening Result: No Definite Risk - Focused Exam Vital Signs: Vital Signs Temp Pulse Resp BP Pulse Ox 06/17/20 14:05 97.4 F 88 16 130/88 96 06/17/20 13:39 86 16 103/67 94 L 06/17/20 12:38 97.5 F 107 H 18 123/85 96 06/17/20 10:22 96.4 F L 114 H 18 124/82 94 L - My Orders Last 24 Hours: My Active Orders 06/17/20 11:00 CULTURE URINE [RM] Stat - Assessment/Plan Last 24 Hours: My Active Orders 06/17/20 11:00 CULTURE URINE [RM] Stat
--- NOTE | 2020-06-17 11:56 | US ---
Indication: Right thigh pain Technique: Sonography of the right lower extremity deep venous system was performed. Grayscale, grayscale compression, color Doppler, spectral Doppler and augmentation technique was utilized. Comparison: None Findings: There is no evidence of right lower extremity deep venous thrombosis. Normal examination. Impression: Normal examination of the right lower extremity deep venous system. Dictated by Tenzin Coleman MD @ Jun 17 2020 11:53AM Signed by Dr. Tenzin Coleman @ Jun 17 2020 11:55AM
--- NOTE | 2020-06-17 12:19 | CR ---
INDICATION: Pain. FINDINGS: A single frontal view of the pelvis shows no evidence of acute fracture or dislocation. The hip joints appear intact. No other bony or soft tissue abnormalities identified. Dictated by Lamberto West MD @ Jun 17 2020 12:16PM Signed by Dr. Lamberto West @ Jun 17 2020 12:18PM
--- NOTE | 2020-06-17 12:21 | CR ---
Indication: Pain Technique: A total of 3 images of the lumbosacral spine were acquired. Comparison: None Findings: Bones: Alignment is normal. No fractures or bone lesions. Joint spaces: Mild degenerative changes involving the disc spaces in the mid and lower facet joints Soft tissues: Unremarkable. Impression: Mild degenerative changes. No fracture, dislocation or destructive process apparent Dictated by Tenzin Coleman MD @ Jun 17 2020 12:19PM Signed by Dr. Tenzin Coleman @ Jun 17 2020 12:20PM
[2020-06-17] MEDS ORDERED: Sodium Chloride 0.9% 1,000 ML IV ONE (12:41)
[2020-06-17] MEDS ORDERED: Acetaminophen/HYDROcodone 325-5 MG Tab PO ONE (12:42)
--- NOTE | 2020-06-17 13:10 | CR ---
INDICATION: Tachycardia COMPARISON: February 07, 2018 TECHNIQUE: AP portable single view study FINDINGS: TUBES AND LINES: None. HEART AND MEDIASTINUM: The heart size is normal. The mediastinal contour appears normal for patient age. LUNGS AND PLEURAL SPACES: The lungs appear normal.The pleural spaces are unremarkable. OSSEOUS STRUCTURES: Age-appropriate appearance. No acute focal finding. IMPRESSION: No evidence of active pulmonary disease. Dictated by Tenzin Coleman MD @ Jun 17 2020 1:07PM Signed by Dr. Tenzin Coleman @ Jun 17 2020 1:09PM
[2020-06-17 13:46] LABS: BLOOD UREA NITROGEN,BUN 11 mg/dL (7.0-18.0); CARBON DIOXIDE,CO2 23.6 mmol/L (21.0-32.0); CHLORIDE,CL 98 mmol/L (98-107); GLUCOSE RANDOM 367 mg/dL (74-106); POTASSIUM,K 4.4 mmol/L (3.5-5.1); SODIUM,NA 134 mmol/L (136-145)
[2020-06-17 14:06] VITALS: BP 130/88; PULSE 88
--- NOTE | 2020-06-17 20:29 | PCM.SN.2 ---
#1 Interpretation EKG Date: 06/17/20 Time: 13:49 Rhythm: NSR Rate (Beats/Min): 77 [place]: Normal P-Wave: Present QRS: Normal ST-T: Normal QT: Normal Comparison: No Change (01/20/19) EKG Interpretation Comments: Sinus Rhythm w/ RSR in V1/V2
== END 2020-06-17 14:06 | disposition home or self-care (01) ==
LOC: MW.ED 10:12
DX: M54.41 Lumbago with sciatica, right side (principal); E11.65 Type 2 diabetes mellitus with hyperglycemia; R00.0 Tachycardia, unspecified; Z88.1 Allergy status to other antibiotic agents; Z88.5 Allergy status to narcotic agent; Z88.8 Allergy status to other drugs, medicaments and biological substances; Z79.4 Long term (current) use of insulin; Z79.899 Other long term (current) drug therapy
CPT/HCPCS: 36415; 71045; 72100; 72170; 80053; 81001; 81025; 82962; 84484; 85025; 85379; 87086; 93005; 93971; 96372; 99285; A9270; J1885; J2360; J2930; J7030; 93010; 99283

== ENCOUNTER 2020-07-08 15:56 | Emergency (ER) | payer BC, OTHER ==
--- NOTE | 2020-07-08 15:57 | EDM.PDOC ---
ED HPI GENERAL MEDICAL PROBLEM - General Stated Complaint: MIGRAINE Time Seen by Provider: 07/08/20 15:57 Source of Information: Reports: Patient History Limitations: Reports: No Limitations - History of Present Illness INITIAL COMMENTS - FREE TEXT/NARRATIVE: HISTORY AND PHYSICAL: History of present illness: Patient is a 50-year-old female who presents to the emergency room with complaints of a migraine headache. Describes the headache as a pressure behind both of her eyes and does have light sensitivity, noise sensitivity and nausea. She states she does get migraine headaches, this one is not any different or described as the worst headache of her life. She has been taking Marietta for a herniated disc and states she was not able to take any of her pain medications today due to the nausea associated with her migraine. Denies any recent head injury, trauma or falls. Denies any numbness, tingling, saddle paresthesia or weakness. Patient denies any fever, chills, change in vision, syncope or near syncope. Denies any chest pain, back pain, shortness of breath or cough. Denies any GI or symptoms. Review of systems: As per history of present illness and below otherwise all systems reviewed and negative. Past medical history: As per history of present illness and as reviewed below otherwise noncontributory. Surgical history: As per history of present illness and as reviewed below otherwise noncontributory. Social history: See social history for further information Family history: As per history of present illness and as reviewed below otherwise noncontributory. Physical exam: General: Well developed and well nourished. Alert and orientated x 3. Nontoxic in appearance and in no acute distress. Vital signs are stable and have been reviewed by me. Nursing notes were reviewed. HEENT: Atraumatic, normocephalic, pupils equal and reactive bilaterally, negative for conjunctival pallor or scleral icterus, no nystagmus, mucous membranes moist, TMs normal bilaterally, throat clear, neck supple, nontender, trachea midline. No lymphadenopathy. No drooling or trismus noted. No meningeal signs. No hot potato voice noted. Lungs: Clear to auscultation, breath sounds equal bilaterally. Normal work of breathing, no accessory muscles used. Heart: S1S2, regular rate and rhythm without overt murmur Abdomen: Soft, nondistended, nontender. Negative for masses or costovertebral tenderness. Pelvis: Stable nontender. C-spine/Back: No pinpoint vertebral tenderness upon palpation. No crepitus, step-offs or obvious deformities. Patient is ambulatory into the emergency room without difficulty or deficit. Denies any urinary or fecal incontinence. Denies any numbness, tingling or saddle paresthesia. No concerns of serious infection, fracture or cord compression, or cauda equina syndrome. Deep tendon reflexes brisk bilaterally. Skin: Intact, warm, dry. No lesions or rashes noted. Hematologic: No petechiae or purpra. Mucosa appropriate color and normal nail bed color and refill. Extremities: Atraumatic, moves all extremities per self without difficulty or deficits, negative for cords or calf pain. Neurovascular unremarkable. Neuro: Awake, alert, oriented. Cranial nerves II through XII unremarkable. Cerebellum unremarkable. Motor and sensory unremarkable throughout. Exam nonfocal. Psychiatric: Mood and affect are appropriate. Normal thought process. Answering questions appropriately. Notes: We did discuss doing imaging as she states she has not had any in "quite a while". She declines wanting any diagnostics/CT head as she does have an appointment with her primary care provider and feels it is unnecessary at this time. She states this is not the worst headache of her life and does feel very typical of her regular migraines. States she came in "early because I wanted to get on top of this". I do see that she has been here for migraines in the past and has had IV fluid, Benadryl, Zofran, Toradol and Reglan cocktail which has worked well for her. Pain is improved after IV fluids and medications. She states she does have an appointment tomorrow with her primary care provider regarding her hernia/medication management. She will inform her primary care provider about her ER visit today and discuss further management/treatment options of her migraine headaches. I have talked with the patient about today's findings, in addition to providing specific details for plan of care. Reassessment at the time of disposition demonstrates that the patient is in no acute distress. The patient is stable for discharge, counseling was provided and we discussed in great detail signs and symptoms that would prompt them to return to the Emergency Department. Medication, follow up and supportive care measures were reviewed and discussed. Voices understanding and is agreeable to plan of care. Denies any further questions or concerns at this time. Diagnostics: Glucose Therapeutics: IV fluids, Benadryl, Zofran, Toradol, Reglan Prescription: Zofran (#8) Impression: Migraine Headache Plan: 1. Today you received some medications that may cause drowsiness, so please do not take while driving or needing to be functioning outside the house. 2. Alternate Tylenol and Ibuprofen as needed for pain. Zofran for nausea management. 3. We encourage you to follow up with your primary care provider and/or recommended specialist in the next few days for re-evaluation and further care/management. If your symptoms should worsen, new symptoms develop or any of the signs and symptoms we discussed should arise please return to the emergency room or call 911 (if needed). Definitive disposition and diagnosis as appropriate pending reevaluation and review of above. Headache Pain Score (Numeric/FACES): 10 - Related Data Allergies Allergy/AdvReac Type Severity Reaction Status Date / Time amoxicillin trihydrate Allergy Blisters Verified 07/08/20 16:07 [From Augmentin] codeine Allergy Blisters Verified 07/08/20 16:07 potassium clavulanate Allergy Blisters Verified 07/08/20 16:07 [From Augmentin] Home Meds: Home Meds Spironolactone 50 mg PO DAILY 02/02/15 [History] FLUoxetine [PROzac] 40 mg PO DAILY 05/12/19 [History] Insulin Aspart (Niacinamide) [Fiasp Penfill 100 Unit/ml Cart] 100 unit SQ ASDIRECTED 05/12/19 [History] Insulin Degludec [Tresiba] 35 unit INJECT DAILY 06/17/20 [History] Hydrocodone/Acetaminophen [Hydrocodone-Acetamin 5-325 mg] 1 tab PO DAILY 07/08/20 [History] Ibuprofen 200 mg PO DAILY PRN 07/08/20 [History] Ondansetron [Zofran ODT] 4 mg PO Q6H PRN #8 tab.dis 07/08/20 [Rx] Past Medical History HEENT History: Reports: None Cardiovascular History: Reports: None Respiratory History: Reports: None Gastrointestinal History: Reports: None Genitourinary History: Reports: None 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: Musculoskeletal History: Reports: None Neurological History: Reports: None Psychiatric History: Reports: Anxiety, Depression Endocrine/Metabolic History: Reports: Diabetes, Type II Hematologic History: Reports: None Immunologic History: Reports: None Oncologic (Cancer) History: Reports: None Dermatologic History: Reports: None - Infectious Disease History Infectious Disease History: Reports: Chicken Pox - Past Surgical History Female Surgical History: Reports: Section Other Female Surgeries/Procedures: [place] Cyst Social & Family History - Family History Family Medical History: No Pertinent Family History - Caffeine Use Caffeine Use: Reports: Energy Drinks ED ROS GENERAL - Review of Systems Review Of Systems: Comprehensive ROS is negative, except as noted in HPI. - Physical Exam Exam: See Below (See dictation) Course - Vital Signs Last Recorded V/S: Last Vital Signs Temp 96.3 F L 07/08/20 16:10 Pulse 79 07/08/20 16:10 Resp 18 07/08/20 16:10 BP 132/80 07/08/20 16:10 Pulse Ox 96 07/08/20 16:10 - Orders/Labs/Meds Labs: Laboratory Tests 07/08/20 Range/Units 16:13 POC Glucose 197 H (60-110) mg/dL Meds: Medications Discontinued Medications Generic Name Dose Route Start Last Admin Trade Name Sunita PRN Reason Stop Dose Admin Diphenhydramine HCl 50 mg 07/08/20 16:12 07/08/20 16:30 Benadryl IVPUSH 07/08/20 16:13 50 mg ONETIME ONE Administration Sodium Chloride 1,000 mls @ 999 mls/hr 07/08/20 16:12 07/08/20 16:28 Normal Saline IV 07/08/20 17:12 999 mls/hr STAT ONE Administration Ketorolac Tromethamine 30 mg 07/08/20 16:12 07/08/20 16:36 Toradol IVPUSH 07/08/20 16:13 30 mg ONETIME ONE Administration Metoclopramide HCl 5 mg 07/08/20 16:13 07/08/20 16:34 Reglan IV 07/08/20 16:14 5 mg ONETIME ONE Administration Ondansetron HCl 4 mg 07/08/20 16:12 07/08/20 16:29 Zofran IVPUSH 07/08/20 16:13 4 mg ONETIME ONE Administration Departure - Departure Time of Disposition: 17:26 Disposition: Home, Self-Care 01 Clinical Impression: Migraine - Discharge Information Prescriptions: Ondansetron [Zofran ODT] 4 mg PO Q6H PRN #8 tab.dis PRN Reason: Nausea Instructions: Migraine Headache, [id number] Referrals: Jd Howell MD [Primary Care Provider] - Additional Instructions: The following information is given to patients seen in the emergency department who are being discharged to home. This information is to outline your options for follow-up care. We provide all patients seen in our emergency department with a follow-up referral. The need for follow-up, as well as the timing and circumstances, are variable depending upon the specifics of your emergency department visit. If you don't have a primary care physician on staff, we will provide you with a referral. We always advise you to contact your personal physician following an emergency department visit to inform them of the circumstance of the visit and for follow-up with them and/or the need for any referrals to a consulting specialist. The emergency department will also refer you to a specialist when appropriate. This referral assures that you have the opportunity for follow-up care with a specialist. All of these measure are taken in an effort to provide you with optimal care, which includes your follow-up. Under all circumstances we always encourage you to contact your private physician who remains a resource for coordinating your care. When calling for follow-up care, please make the office aware that this follow-up is from your recent emergency room visit. If for any reason you are refused follow-up, please contact the [facility] Emergency Department at and asked to speak to the emergency department charge nurse. [facility] [address] [place] [id number] [id number] Thank you for choosing the [facility] emergency department in [place] for your medical needs today. It was a pleasure caring for you. Today you were seen in the emergency department for migraine headache and nausea. 1. Today you received some medications that may cause drowsiness, so please do not take while driving or needing to be functioning outside the house. 2. Alternate Tylenol and Ibuprofen as needed for pain. Zofran for nausea management. 3. We encourage you to follow up with your primary care provider and/or recommended specialist in the next few days for re-evaluation and further care/management. If your symptoms should worsen, new symptoms develop or any of the signs and symptoms we discussed should arise please return to the emergency room or call 911 (if needed). Sepsis Event Note (ED) - Focused Exam Vital Signs: Vital Signs Temp Pulse Resp BP Pulse Ox 07/08/20 16:10 96.3 F L 79 18 132/80 96
[2020-07-08] MEDS ORDERED: Sodium Chloride 0.9% 1,000 ML IV ONE (16:12)
[2020-07-08] MEDS ORDERED: Ketorolac 30 MG/ML SDV IVPUSH ONE (16:12)
[2020-07-08] MEDS ORDERED: diphenhydrAMINE 50 MG/ML SDV IVPUSH ONE (16:12)
[2020-07-08] MEDS ORDERED: Ondansetron 4 MG/2 ML SDV IVPUSH ONE (16:12)
[2020-07-08] MEDS ORDERED: Metoclopramide 10 MG/2 ML SDV IV ONE (16:13)
[2020-07-08 17:48] VITALS: BP 128/82; PULSE 72
== END 2020-07-08 17:40 | disposition home or self-care (01) ==
LOC: MW.ED 15:56
DX: G43.909 Migraine, unspecified, not intractable, without status migrainosus (principal); E11.9 Type 2 diabetes mellitus without complications; Z88.0 Allergy status to penicillin; Z88.5 Allergy status to narcotic agent; Z88.1 Allergy status to other antibiotic agents; Z79.4 Long term (current) use of insulin
CPT/HCPCS: 82962; 96374; 96375; 99283; J1200; J1885; J2405; J2765; J7030

== ENCOUNTER 2020-12-27 10:59 | Emergency (ER) | payer OTHER ==
[2020-12-27] MEDS ORDERED: Sodium Chloride 0.9% 2.5 ML Syringe FLUSH PRN (11:07)
[2020-12-27] MEDS ORDERED: Sodium Chloride 0.9% 10 ML Syringe FLUSH PRN (11:07)
--- NOTE | 2020-12-27 11:07 | PCM.EKG ---
#1 Interpretation EKG Date: 12/27/20 Time: 11:03 Rhythm: NSR Rate (Beats/Min): 82 ST-T: Normal
--- NOTE | 2020-12-27 11:12 | EDM.PDOC ---
ED HPI GENERAL MEDICAL PROBLEM - General Chief Complaint: Chest Pain Stated Complaint: CHEST PAINS Time Seen by Provider: 12/27/20 11:06 Source of Information: Reports: Patient History Limitations: Reports: No Limitations - History of Present Illness INITIAL COMMENTS - FREE TEXT/NARRATIVE: HISTORY AND PHYSICAL: History of present illness: Patient is a 50-year-old female, with a history of type 1 diabetes, who presents emergency room today with multiple symptoms that started last night and resolved last night but currently stated compliant of fatigue. Patient states that last night she had a bump in her left forearm and had [id number] sensation of her left arm and states that this also went across her chest and into her right arm but was not painful that occurred last night. Patient states that this stopped last night and she has not had this symptom since but today feels fatigued and "blah". She is unable to explain more of what this means today. Patient states that she is also had the random sensation in her leg and feels "puffy " and bloated all over but states that she is not swollen and not actually swollen or bloated and just has the sensation. Patient states that there is a chance that she could be as she is sexually active and not on control. Patient denies fever, chills, chest pain, shortness of breath, or cough. Denies headache, neck stiff ness, change in vision, syncope, or near syncope. Denies nausea, vomiting, abdominal pain, diarrhea, constipation, or dysuria. Has not noted any blood in urine or stool. Patient has been eating and drinking appropriately. Review of systems: As per history of present illness and below otherwise all systems reviewed and negative. Past medical history: As per history of present illness and as reviewed below otherwise noncontributory. Surgical history: As per history of present illness and as reviewed below otherwise noncontributory. Social history: See social history for further information Family history: As per history of present illness and as reviewed below otherwise noncontributory. Physical exam: General: Patient is alert, oriented, and in no acute distress. Patient laying comfortably on exam table. Vitals stable and reviewed by me. HEENT: Atraumatic, normocephalic, pupils equal and reactive bilaterally, negative for conjunctival pallor or scleral icterus, mucous membranes moist, TMs normal bilaterally, throat clear, neck supple, nontender, trachea midline. No drooling or trismus noted. No meningeal signs. No hot potato voice noted. Lungs: Clear to auscultation, breath sounds equal bilaterally, chest nontender. Heart: S1S2, regular rate and rhythm without overt murmur Abdomen: Soft, nondistended, nontender. Negative for masses or hepatosplenomega ly. Negative for costovertebral tenderness. Pelvis: Stable nontender. Genitourinary: Deferred. Rectal: Deferred. Skin: Intact, warm, dry. No lesions or rashes noted. Extremities: Atraumatic, negative for cords or calf pain. Neurovascular unremarkable. Neuro: Awake, alert, oriented. Cranial nerves II through XII unremarkable. Cerebellum unremarkable. Motor and sensory unremarkable throughout. Exam nonfocal. Notes: Patient is a 50-year-old female, with a history of type 1 diabetes, who presents to the emergency room today with concern of fatigue. Patient also expresses symptoms that occurred last night including [id number] sensation of her bilateral upper extremities and across her chest but states that she never had any chest discomfort. Patient also complains of similar sensation on her legs and states that ever since she has been feeling "blah ". Patient states that she is unable to fully express what this means. Upon arrival to the ED, patient's only stated complaint today is fatigue and no other associated symptoms that occurred last night. Upon arrival to the ED, patient is vitally stable and well-appearing on exam. Will perform cardiac evaluation given patient's complaints that occurred last night, over 12 hours ago and now symptom free from this. See Dr. Paz's dictation for specific EKG interpretation. However, normal sinus rhythm without signs of STEMI with a rate of 82 bpm. Mild derangements of lab work today is unremarkable. Troponin negative. Glucose is noted to be elevated at 219, otherwise, CBC is unremarkable. Chest x-ray shows no acute cardiopulmonary findings. hCG is negative. Urinalysis indicates greater than 1000 glucose, however, no signs of acute infection. HEART Score 1-low risk. Upon reevaluation of patient, she remains vitally stable and comfortable throughout stay in ED. Strict return precautions thoroughly discussed with patient. Discussed importance for follow-up with a primary care provider. Voices understanding and is agreeable to plan of care. Denies any further questions or concerns at this time. Diagnostics: EKG, CBC, CMP, UA, Trop, CXR, Hcg, Lipase Therapeutics: Saline Prescription: None Impression: Fatigue History of paresthesia Hyperglycemia with a history of type 1 diabetes Plan: 1. You can alternate ibuprofen and Tylenol as directed for pain and discomfort. 2. Follow-up with a primary care provider as discussed. Return to the ED as needed and as discussed. Definitive disposition and diagnosis as appropriate pending reevaluation and review of above. - Related Data Allergies Allergy/AdvReac Type Severity Reaction Status Date / Time amoxicillin trihydrate Allergy Blisters Verified 12/27/20 11:07 [From Augmentin] codeine Allergy Blisters Verified 12/27/20 11:07 potassium clavulanate Allergy Blisters Verified 12/27/20 11:07 [From Augmentin] Home Meds: Home Meds Spironolactone 100 mg PO DAILY 02/02/15 [History] FLUoxetine [PROzac] 40 mg PO DAILY 05/12/19 [History] Insulin Aspart (Niacinamide) [Fiasp Penfill 100 Unit/ml Cart] 100 unit SQ ASDIRECTED 05/12/19 [History] Insulin Degludec [Tresiba] 35 unit INJECT DAILY 06/17/20 [History] Nitrofurantoin Monohyd/M-Cryst [Macrobid 100 mg Capsule] 1 tab PO ASDIRECTED 12/27/20 [History] Past Medical History HEENT History: Reports: None Cardiovascular History: Reports: None Respiratory History: Reports: None Gastrointestinal History: Reports: None Genitourinary History: Reports: None MANAGER DEPARTMENT History: Reports: Polycystic Ovaries, Musculoskeletal History: Reports: None Neurological History: Reports: None Psychiatric History: Reports: Anxiety, Depression Endocrine/Metabolic History: Reports: Diabetes, Type I Hematologic History: Reports: None Immunologic History: Reports: None Oncologic (Cancer) History: Reports: None Dermatologic History: Reports: None - Infectious Disease History Infectious Disease History: Reports: Chicken Pox - Past Surgical History Female Surgical History: Reports: Section Other Female Surgeries/Procedures: [place] Cyst Social & Family History - Family History Family Medical History: No Pertinent Family History - Caffeine Use Caffeine Use: Reports: Coffee, Energy Drinks ED ROS GENERAL - Review of Systems Review Of Systems: Comprehensive ROS is negative, except as noted in HPI. ED EXAM, GENERAL - Physical Exam Exam: See Below (see dictation) Course - Vital Signs Last Recorded V/S: Last Vital Signs Temp 96.9 F 12/27/20 11:08 Pulse 74 12/27/20 13:21 Resp 18 12/27/20 13:21 BP 96/55 L 12/27/20 13:21 Pulse Ox 98 12/27/20 13:21 - Orders/Labs/Meds Orders: Active Orders 24 hr Category Date Time Status Cardiac Monitoring [RC] . DIRECTED Care 12/27/20 11:07 Active EKG Documentation Completion [RC] STAT Care 12/27/20 11:07 Active Sodium Chloride 0.9% [Saline Flush] Med 12/27/20 11:07 Active 10 ml FLUSH ASDIRECTED PRN Sodium Chloride 0.9% [Saline Flush] Med 12/27/20 11:07 Active 2.5 ml FLUSH ASDIRECTED PRN Saline Lock Insert [OM.PC] Stat Oth 12/27/20 11:07 Ordered Medication Orders Sodium Chloride (Sodium Chloride 0.9% 2.5 Ml Syringe) 2.5 ml FLUSH ASDIRECTED PRN PRN Reason: Keep Vein Open Last Admin: 12/27/20 11:35 Dose: 2.5 ml Documented by: PIERRE Sodium Chloride (Sodium Chloride 0.9% 10 Ml Syringe) 10 ml FLUSH ASDIRECTED PRN PRN Reason: Keep Vein Open Last Admin: 12/27/20 11:35 Dose: 10 ml Documented by: PIERRE Labs: Laboratory Tests 12/27/20 12/27/20 12/27/20 Range/Units 11:10 11:10 11:10 WBC 7.26 (4.0-11.0) K/uL RBC 5.43 (4.30-5.90) M/uL Hgb 15.0 (12.0-16.0) g/dL Hct 44.3 (36.0-46.0) % MCV 81.6 (80.0-98.0) fL MCH 27.6 (27.0-32.0) pg MCHC 33.9 (31.0-37.0) g/dL RDW Std Deviation 37.2 (28.0-62.0) fl RDW Coeff of Evelyn 12 (11.0-15.0) % Plt Count 318 (150-400) K/uL MPV 9.10 (7.40-12.00) fL Neut % (Auto) 55.6 (48.0-80.0) % Lymph % (Auto) 28.4 (16.0-40.0) % [place] % (Auto) 7.4 (0.0-15.0) % Eos % (Auto) 8.0 H (0.0-7.0) % Baso % (Auto) 0.6 (0.0-1.5) % Neut # (Auto) 4.0 (1.4-5.7) K/uL Lymph # (Auto) 2.1 (0.6-2.4) K/uL [place] # (Auto) 0.5 (0.0-0.8) K/uL Eos # (Auto) 0.6 (0.0-0.7) K/uL Baso # (Auto) 0.0 (0.0-0.1) K/uL Sodium 136 (136-145) mmol/L Potassium 3.8 (3.5-5.1) mmol/L Chloride 100 (98-107) mmol/L Carbon Dioxide 27.4 (21.0-32.0) mmol/L BUN 11 (7.0-18.0) mg/dL Creatinine 0.7 (0.6-1.0) mg/dL Est Cr Clr Drug Dosing 76.04 mL/min Estimated GFR (MDRD) > 60.0 ml/min Glucose 219 H (74-106) mg/dL Calcium 8.3 L (8.5-10.1) mg/dL Total Bilirubin 0.3 (0.2-1.0) mg/dL AST 15 (15-37) IU/L ALT 22 (14-63) IU/L Alkaline Phosphatase 89 (46-116) U/L Troponin I < 0.050 (0.000-0.056) ng/mL Total Protein 7.8 (6.4-8.2) g/dL Albumin 3.7 (3.4-5.0) g/dL Globulin 4.1 H (2.6-4.0) g/dL Albumin/Globulin Ratio 0.9 (0.9-1.6) Lipase 133 (73-393) U/L HCG, Qual NEGATIVE (NEG) Urine Color Urine Appearance Urine pH (5.0-8.0) Ur Specific [place] (1.001-1.035) Urine Protein (NEGATIVE) mg/dL Urine Glucose (UA) (NEGATIVE) mg/dL Urine Ketones (NEGATIVE) mg/dL Urine Occult Blood (NEGATIVE) Urine Nitrite (NEGATIVE) Urine Bilirubin (NEGATIVE) Urine Urobilinogen (<2.0) EU/dL Ur Leukocyte Esterase (NEGATIVE) 12/27/20 Range/Units 11:27 WBC (4.0-11.0) K/uL RBC (4.30-5.90) M/uL Hgb (12.0-16.0) g/dL Hct (36.0-46.0) % MCV (80.0-98.0) fL MCH (27.0-32.0) pg MCHC (31.0-37.0) g/dL RDW Std Deviation (28.0-62.0) fl RDW Coeff of Evelyn (11.0-15.0) % Plt Count (150-400) K/uL MPV (7.40-12.00) fL Neut % (Auto) (48.0-80.0) % Lymph % (Auto) (16.0-40.0) % [place] % (Auto) (0.0-15.0) % Eos % (Auto) (0.0-7.0) % Baso % (Auto) (0.0-1.5) % Neut # (Auto) (1.4-5.7) K/uL Lymph # (Auto) (0.6-2.4) K/uL [place] # (Auto) (0.0-0.8) K/uL Eos # (Auto) (0.0-0.7) K/uL Baso # (Auto) (0.0-0.1) K/uL Sodium (136-145) mmol/L Potassium (3.5-5.1) mmol/L Chloride (98-107) mmol/L Carbon Dioxide (21.0-32.0) mmol/L BUN (7.0-18.0) mg/dL Creatinine (0.6-1.0) mg/dL Est Cr Clr Drug Dosing mL/min Estimated GFR (MDRD) ml/min Glucose (74-106) mg/dL Calcium (8.5-10.1) mg/dL Total Bilirubin (0.2-1.0) mg/dL AST (15-37) IU/L ALT (14-63) IU/L Alkaline Phosphatase (46-116) U/L Troponin I (0.000-0.056) ng/mL Total Protein (6.4-8.2) g/dL Albumin (3.4-5.0) g/dL Globulin (2.6-4.0) g/dL Albumin/Globulin Ratio (0.9-1.6) Lipase (73-393) U/L HCG, Qual (NEG) Urine Color YELLOW Urine Appearance CLEAR Urine pH 6.0 (5.0-8.0) Ur Specific [place] 1.025 (1.001-1.035) Urine Protein NEGATIVE (NEGATIVE) mg/dL Urine Glucose (UA) >=1000 (NEGATIVE) mg/dL Urine Ketones NEGATIVE (NEGATIVE) mg/dL Urine Occult Blood NEGATIVE (NEGATIVE) Urine Nitrite NEGATIVE (NEGATIVE) Urine Bilirubin NEGATIVE (NEGATIVE) Urine Urobilinogen 0.2 (<2.0) EU/dL Ur Leukocyte Esterase NEGATIVE (NEGATIVE) Meds: Medications Generic Name Dose Route Start Last Admin Trade Name Freq PRN Reason Stop Dose Admin Sodium Chloride 2.5 ml 12/27/20 11:07 12/27/20 11:35 Sodium Chloride 0.9% 2.5 Ml Syringe FLUSH 2.5 ml ASDIRECTED PRN Administration Keep Vein Open Sodium Chloride 10 ml 12/27/20 11:07 12/27/20 11:35 Sodium Chloride 0.9% 10 Ml Syringe FLUSH 10 ml ASDIRECTED PRN Administration Keep Vein Open Discontinued Medications Generic Name Dose Route Start Last Admin Trade Name Freq PRN Reason Stop Dose Admin Sodium Chloride 1,000 mls @ 999 mls/hr 12/27/20 11:22 12/27/20 11:35 Normal Saline IV 12/27/20 12:22 999 mls/hr STAT ONE Administration Departure - Departure Time of Disposition: 13:42 Disposition: Home, Self-Care 01 Clinical Impression: Paresthesia and pain of both upper extremities, Hyperglycemia Fatigue Qualifiers: Fatigue type: unspecified Qualified Code(s): R53.83 - Other fatigue - Discharge Information Forms: ED Department Discharge Additional Instructions: The following information is given to patients seen in the emergency department who are being discharged to home. This information is to outline your options for follow-up care. We provide all patients seen in our emergency department with a follow-up referral. The need for follow-up, as well as the timing and circumstances, are variable depending upon the specifics of your emergency department visit. If you don't have a primary care physician on staff, we will provide you with a referral. We always advise you to contact your personal physician following an emergency department visit to inform them of the circumstance of the visit and for follow-up with them and/or the need for any referrals to a consulting specialist. The emergency department will also refer you to a specialist when appropriate. This referral assures that you have the opportunity for follow-up care with a specialist. All of these measure are taken in an effort to provide you with optimal care, which includes your follow-up. Under all circumstances we always encourage you to contact your private physician who remains a resource for coordinating your care. When calling for follow-up care, please make the office aware that this follow-up is from your recent emergency room visit. If for any reason you are refused follow-up, please contact the [facility] Emergency Department at and asked to speak to the emergency department charge nurse. [facility] [address] [place] [address] [id number] [address] [id number] 1. You can alternate ibuprofen and Tylenol as directed for pain and discomfort. 2. Follow-up with a primary care provider as discussed. Return to the ED as needed and as discussed. Sepsis Event Note (ED) - Evaluation Sepsis Screening Result: No Definite Risk - Focused Exam Vital Signs: Vital Signs Temp Pulse Resp BP Pulse Ox 12/27/20 13:21 74 18 96/55 L 98 12/27/20 12:36 75 16 100/74 98 12/27/20 11:08 96.9 F 75 18 126/77 98 - My Orders Last 24 Hours: My Active Orders 12/27/20 11:07 Cardiac Monitoring [RC] . DIRECTED EKG Documentation Completion [RC] STAT Sodium Chloride 0.9% [Saline Flush] 10 ml FLUSH ASDIRECTED PRN Sodium Chloride 0.9% [Saline Flush] 2.5 ml FLUSH ASDIRECTED PRN Saline Lock Insert [OM.PC] Stat - Assessment/Plan Last 24 Hours: My Active Orders 12/27/20 11:07 Cardiac Monitoring [RC] . DIRECTED EKG Documentation Completion [RC] STAT Sodium Chloride 0.9% [Saline Flush] 10 ml FLUSH ASDIRECTED PRN Sodium Chloride 0.9% [Saline Flush] 2.5 ml FLUSH ASDIRECTED PRN Saline Lock Insert [OM.PC] Stat
[2020-12-27] MEDS ORDERED: Sodium Chloride 0.9% 1,000 ML IV ONE (11:22)
[2020-12-27 11:37] LABS: BLOOD UREA NITROGEN,BUN 11 mg/dL (7.0-18.0); CARBON DIOXIDE,CO2 27.4 mmol/L (21.0-32.0); CHLORIDE,CL 100 mmol/L (98-107); GLUCOSE RANDOM 219 mg/dL (74-106); LIPASE 133 U/L (73-393); POTASSIUM,K 3.8 mmol/L (3.5-5.1); SODIUM,NA 136 mmol/L (136-145)
[2020-12-27 13:22] VITALS: PULSE 74
--- NOTE | 2020-12-27 13:36 | CR ---
INDICATION: Chest pain. TECHNIQUE: Chest 2 views. COMPARISON: Chest radiograph 06/17/2020. FINDINGS: No focal consolidation, pleural effusion, or pneumothorax. Normal heart size and pulmonary vascularity. The bones are unremarkable. IMPRESSION: No acute cardiopulmonary findings. Dictated by Luba Batista MD @ 12/27/2020 1:34:[address] Luba Batista @ Dec 27 2020 1:34PM
[2020-12-27 15:13] VITALS: BP 96/41
== END 2020-12-27 13:56 | disposition home or self-care (01) ==
LOC: MW.ED 10:59
DX: R53.83 Other fatigue (principal); E10.65 Type 1 diabetes mellitus with hyperglycemia; R20.2 Paresthesia of skin; Z88.0 Allergy status to penicillin; Z79.4 Long term (current) use of insulin
CPT/HCPCS: 36415; 71046; 80053; 81003; 83690; 84484; 84703; 85025; 93005; 99284; J7030

== ENCOUNTER 2022-07-26 17:07 | Emergency (ER) | payer BC, OTHER ==
[2022-07-26] MEDS ORDERED: Sodium Chloride 0.9% 10 ML Syringe FLUSH PRN (17:33)
[2022-07-26] MEDS ORDERED: Sodium Chloride 0.9% 2.5 ML Syringe FLUSH PRN (17:33)
[2022-07-26 18:29] LABS: BLOOD UREA NITROGEN,BUN 11 mg/dL (7.0-18.0); CHLORIDE,CL 99 mmol/L (98-107); GLUCOSE RANDOM 110 mg/dL (74-106); POTASSIUM,K 3.7 mmol/L (3.5-5.1); SODIUM,NA 137 mmol/L (136-145)
[2022-07-26 18:31] LABS: ESTIMATED GFR 77 mL/min (>60)
[2022-07-26] MEDS ORDERED: Magnesium Oxide 400 MG Tab PO ONE (18:39)
[2022-07-26 18:50] VITALS: BP 122/78; PULSE 100
== END 2022-07-26 18:54 | disposition home or self-care (01) ==
LOC: MW.ED 17:07
DX: E83.42 Hypomagnesemia (principal); Z88.1 Allergy status to other antibiotic agents; Z88.5 Allergy status to narcotic agent; Z88.8 Allergy status to other drugs, medicaments and biological substances
CPT/HCPCS: 36415; 71045; 80053; 83735; 84443; 84484; 85025; 85379; 93005; 99285; A9270; J3490

== ENCOUNTER 2022-08-05 07:54 | Emergency (ER) | payer BC ==
[2022-08-05] MEDS ORDERED: Sodium Chloride 0.9% 2.5 ML Syringe FLUSH PRN (08:30)
[2022-08-05] MEDS ORDERED: Sodium Chloride 0.9% 10 ML Syringe FLUSH PRN (08:30)
[2022-08-05] MEDS ORDERED: Sodium Chloride 0.9% 1,000 ML IV ONE (08:30)
[2022-08-05 09:04] LABS: BLOOD UREA NITROGEN,BUN 12 mg/dL (7.0-18.0); CARBON DIOXIDE,CO2 26.6 mmol/L (21.0-32.0); CHLORIDE,CL 101 mmol/L (98-107); GLUCOSE RANDOM 62 mg/dL (74-106); POTASSIUM,K 3.8 mmol/L (3.5-5.1); SODIUM,NA 139 mmol/L (136-145)
[2022-08-05 09:07] LABS: ESTIMATED GFR 89 mL/min (>60)
[2022-08-05 10:34] VITALS: BP 114/73; PULSE 90
== END 2022-08-05 10:28 | disposition home or self-care (01) ==
LOC: MW.ED 07:54
DX: E86.0 Dehydration (principal); R53.1 Weakness; E10.9 Type 1 diabetes mellitus without complications; Z79.4 Long term (current) use of insulin
CPT/HCPCS: 36415; 80053; 81001; 83735; 84443; 84484; 85025; 87086; 93005; 96360; 99285; J3490; J7030

== ENCOUNTER 2024-05-08 13:23 | Emergency (ER) | payer BC ==
[2024-05-08] MEDS: diphenhydrAMINE 50 MG/ML SDV IVPUSH ONE (14:10)
[2024-05-08] MEDS: Ketorolac 30 MG/ML SDV IVPUSH ONE (14:10)
[2024-05-08] MEDS: Metoclopramide 10 MG/2 ML SDV IVPUSH ONE (14:10)
[2024-05-08] MEDS: Sodium Chloride 0.9% 1,000 ML IV ONE (14:10)
[2024-05-08 14:56] LABS: BASOPHILS ABSOLUTE AUTO 0.04 K/uL (0.00-0.20); BASOPHILS PERCENT AUTO 0.5 % (0.0-1.0); EOSINOPHILS ABSOLUTE AUTO 0.19 K/uL (0.00-0.45); EOSINOPHILS PERCENT AUTO 2.2 % (0.0-6.0); HEMATOCRIT 40.8 % (37.0-47.0); IMMATURE GRAN ABSOLUTE AUTO 0.03 K/uL (0.00-0.05); IMMATURE GRAN PERCENT AUTO 0.3 % (0.0-0.4); LYMPHOCYTES ABSOLUTE AUTO 1.38 K/uL (1.00-4.80); LYMPHOCYTES PERCENT AUTO 15.9 % (24.0-44.0); MEAN CORPUSCULAR HEMOGLOBIN 28.5 pg (28.0-32.0); MEAN CORPUSCULAR HGB CONC 34.3 g/dL (32.0-36.0); MEAN CORPUSCULAR VOLUME 83.1 fL (83.0-99.0); MONOCYTES ABSOLUTE AUTO 0.72 K/uL (0.00-0.80); MONOCYTES PERCENT AUTO 8.3 % (0.0-8.0); NEUTROPHILS ABSOLUTE AUTO 6.32 K/uL (1.80-7.70); NEUTROPHILS PERCENT AUTO 72.8 % (41.0-71.0); PLATELET COUNT,PLT 270 K/uL (150-400); RED BLOOD CELL COUNT 4.91 M/uL (4.10-5.30); WHITE BLOOD CELL COUNT,WBC 8.68 K/uL (3.9-11.3)
[2024-05-08 15:08] LABS: ALBUMIN 4.1 g/dL (3.4-5.0); BILIRUBIN TOTAL 0.7 mg/dL (0.2-1.0); CALCIUM 9.5 mg/dL (8.5-10.1); CARBON DIOXIDE,CO2 25.2 mmol/L (21.0-32.0); CREATININE 0.8 mg/dL (0.6-1.0); EST CRCL DRUG DOSING (CG) 64.32 mL/min; MAGNESIUM 1.9 mg/dL (1.8-2.4); POTASSIUM,K 4.3 mmol/L (3.5-5.1); PROTEIN TOTAL,TP 8.2 g/dL (6.4-8.2)
[2024-05-08 15:44] VITALS: BP 95/58; PULSE 64
== END 2024-05-08 15:44 | disposition home or self-care (01) ==
LOC: MW.ED 13:23
DX: G43.009 Migraine without aura, not intractable, without status migrainosus (principal); E10.9 Type 1 diabetes mellitus without complications; Z88.0 Allergy status to penicillin; Z88.8 Allergy status to other drugs, medicaments and biological substances; Z79.4 Long term (current) use of insulin; Z79.899 Other long term (current) drug therapy; Z75.8 Other problems related to medical facilities and other health care
CPT/HCPCS: 36415; 80053; 83735; 85025; 87428; 93005; 96361; 96374; 96375; 99284; J1200; J1885; J2765; J7030; 93010; 99285